=== PATIENT | female | born 1965 | race Caucasian/White ===

== ENCOUNTER 2017-03-07 10:44 | Emergency (ER) | payer BC ==
[2017-03-07 14:45] LABS: HEMOGLOBIN 11.2 gm/dl (12.3-15.3); RED BLOOD COUNT 3.71 M/UL (4.00-5.10); WHITE BLOOD COUNT 11.2 K/UL (4.5-11.0)
[2017-03-07 15:18] LABS: BUN/CREATININE RATIO 15 (0-10)
== END 2017-03-07 18:50 | disposition home or self-care (01) ==
LOC: ER1 10:44
PROVIDERS: Specialist/Technologist Athletic Trainer
DX: N13.2 Hydronephrosis with renal and ureteral calculous obstruction (principal); R31.9 Hematuria, unspecified; E66.01 Morbid (severe) obesity due to excess calories; Z88.5 Allergy status to narcotic agent
CPT/HCPCS: 36415; 80053; 81001; 85025; 87077; 87086; 87186; 96374; 96375; 99284; J2270; J2405

== ENCOUNTER → 2017-05-04 | Outpatient (CLI) | payer BC | LOC: RAD 09:32 | DX: N20.0 Calculus of kidney (principal) | CPT/HCPCS: 74000 ==

== ENCOUNTER → 2021-04-27 | Outpatient (CLI) | payer BC | LOC: KOH-I 13:18 | DX: M54.2 Cervicalgia (principal); M47.812 Spondylosis without myelopathy or radiculopathy, cervical region | CPT/HCPCS: 72040 ==